=== PATIENT | female | born 1985 ===

== ENCOUNTER 2017-03-30 16:42 | Emergency (ER) | payer OTHER ==
[2017-03-30 16:42] VITALS: BMI 32.4
[2017-03-30] MEDS ORDERED: Sodium Chloride 0.9% 1,000 ML IV ONE (17:59)
--- NOTE | 2017-03-30 17:59 | C.PDOC ---
History Of Present Illness 31-year-old female, (17-weeks, ), PMHx includes prior kidney stones, right ovarian cyst and twin with previa, presents to the emergency department with complaints of right-lower quadrant abdominal pain, that radiates to lower back. Patient denies nausea/vomiting, vaginal bleeding/ discharge, fevers or chills. No other complaints at this time. Time Seen by Provider: 03/30/17 17:21 Chief Complaint (Nursing): Abdominal Pain History Per: Patient History/Exam Limitations: no limitations Onset/Duration Of Symptoms: Days Current Symptoms Are (Timing): Still Present Severity: Moderate Location Of Pain/Discomfort: RLQ Past Medical History Reviewed: Historical Data, Nursing Documentation, Vital Signs Vital Signs: Last Vital Signs Temp 99 F 03/30/17 16:50 Pulse 102 H 03/30/17 16:50 Resp 18 03/30/17 16:50 BP 122/75 03/30/17 16:50 Pulse Ox 99 03/30/17 18:39 - Medical History PMH: Kidney Stones - [facility] Procedures TETANUS TOXOID ADMINIST (01/07/14) Family History: States: Diabetes, Hypertension - Social History Hx Tobacco Use: No Hx Alcohol Use: Yes Hx Substance Use: No - Immunization History Hx Tetanus Toxoid Vaccination: Yes (01/07/2014) Hx Influenza Vaccination: Yes Hx Pneumococcal Vaccination: No Review Of Systems Except As Marked, All Systems Reviewed And Found Negative. Constitutional: Negative for: Fever, Chills Cardiovascular: Negative for: Chest Pain Respiratory: Negative for: Shortness of Breath Gastrointestinal: Positive for: Abdominal Pain. Negative for: Nausea, Vomiting Genitourinary: Negative for: Vaginal Discharge, Vaginal Bleeding Musculoskeletal: Positive for: Back Pain Skin: Negative for: Rash Physical Exam - Physical Exam Appears: Non-toxic, No Acute Distress Skin: Warm, Dry, No Rash Head: Atraumatic, Normacephalic Eye(s): bilateral: Normal Inspection, PERRL, EOMI Nose: Normal Oral Mucosa: Moist Lips: Normal Appearing Neck: Normal ROM Cardiovascular: Rhythm Regular, No Murmur Respiratory: Normal Breath Sounds Gastrointestinal/Abdominal: Soft, Other (Gravid) Back: CVA Tenderness (right) Extremity: Normal ROM Neurological/Psych: Oriented x3, Normal Speech ED Course And Treatment - Laboratory Results Result Diagrams: 03/30/17 18:16 03/30/17 18:16 O2 Sat by Pulse Oximetry: 99 Progress - Re-Evaluation Re-evaluation Note: 03/30/17 18:27 D/W DR RILEY AGREES W ER PLAN - Data Reviewed Data Reviewed: Lab, Diagnostic imaging, EKG, Old records - Continuity of Care Discussed pt. case with senior clinical consultant/specialty: Obstetrics/Gynecology Disposition - Disposition Disposition Time: 19:00 Condition: STABLE Forms: [employer] (Kinyarwanda) - Clinical Impression Clinical Impression: Abdominal pain, , Placenta previa - Scribe Statement The provider has reviewed the documentation as recorded by the Scribe (Juan José Parekh) All medical record entries made by the Scribe were at my direction and personally dictated by me. I have reviewed the chart and agree that the record accurately reflects my personal performance of the history, physical exam, medical decision making, and the department course for this patient. I have also personally directed, reviewed, and agree with the discharge instructions and disposition. Physician Patient Turnover Patient Signed Over To: Ryan Gan Handoff Comments: SAI JANSEN, DISPO
--- NOTE | 2017-03-30 17:59 | C.PDOC ---
Time Seen by Provider: 03/30/17 17:21 Chief Complaint (Nursing): Abdominal Pain Past Medical History Vital Signs: Last Vital Signs Temp 99 F 03/30/17 16:50 Pulse 102 H 03/30/17 16:50 Resp 18 03/30/17 16:50 BP 122/75 03/30/17 16:50 Pulse Ox 99 03/30/17 16:50 - Medical History PMH: Kidney Stones - [facility] Procedures TETANUS TOXOID ADMINIST (01/07/14) Family History: States: Diabetes, Hypertension - Social History Hx Tobacco Use: No Hx Alcohol Use: Yes Hx Substance Use: No - Immunization History Hx Tetanus Toxoid Vaccination: Yes (01/07/2014) Hx Influenza Vaccination: Yes Hx Pneumococcal Vaccination: No ED Course And Treatment O2 Sat by Pulse Oximetry: 99 Progress - Data Reviewed Data Reviewed: Lab, Diagnostic imaging, EKG, Old records Disposition - Disposition
[2017-03-30 18:20] LABS: BASO % 0.2 % (0.0-2.0); EOS # 0.1 K/uL (0.0-0.7); EOS % 1.3 % (0.0-4.0); HEMATOCRIT 33.6 % (34.0-47.0); LYMPH # 1.4 K/uL (1.0-4.3); LYMPH % 14.7 % (20.0-40.0); MEAN CELL VOLUME 85.7 fL (81.0-99.0); MEAN PLATELET VOLUME 9.4 fL (7.2-11.7); MONO # 0.5 K/uL (0.0-0.8); MONO % 5.4 % (0.0-10.0); NRBC % 0.2 % (0.0-2.0); WHITE BLOOD COUNT 9.8 K/uL (4.8-10.8)
[2017-03-30 18:22] LABS: URINE BILIRUBIN NEGATIVE (NEGATIVE); URINE BLOOD NEGATIVE (NEGATIVE); URINE COLOR Straw (YELLOW); URINE GLUCOSE (UA) NORMAL (Normal); URINE KETONE NEGATIVE (NEGATIVE); URINE LEUKOCYTE ESTERASE NEG Leu/uL (Negative); URINE PROTEIN NEGATIVE (NEGATIVE); URINE UROBILINOGEN NORMAL mg/dL (0.2-1.0); WBC URINE < 1 /hpf (0-5)
[2017-03-30 18:28] LABS: CHLORIDE 99 mmol/L (98-107)
[2017-03-30 18:29] LABS: POTASSIUM 3.4 mmol/L (3.6-5.2); SODIUM 135 mmol/L (132-148)
[2017-03-30 18:31] LABS: BILIRUBIN,TOTAL 0.5 mg/dL (0.2-1.3); GFR AFRICAN-AMERICAN > 60
[2017-03-30 18:32] LABS: ALB/GLOB RATIO 1.1 (1.0-2.1); ALKALINE PHOSPHATASE 43 U/L (38-126); ALT/SGPT 23 U/L (9-52); AST/SGOT 16 U/L (14-36); BLOOD UREA NITROGEN 7 mg/dL (7-17); CALCIUM 9.6 mg/dl (8.6-10.4); CARBON DIOXIDE 20 mmol/L (22-30); GLUCOSE,RANDOM 82 mg/dL (65-105); TOTAL PROTEIN 7.2 g/dL (6.3-8.3)
--- NOTE | 2017-03-30 23:02 | US ---
EXAM: US Abdomen Complete EXAM DATE/TIME: 03/30/2017 5:59 PM CLINICAL HISTORY: 31 years old, female; Pain; Other: Rt flank pain; ; Additional info: Back pain RO acute edwardo, flank pain, h/o kidney stones TECHNIQUE: Real-time ultrasound of the abdomen (complete) with image documentation. COMPARISON: There are no prior studies for comparison. FINDINGS: Liver: Liver is unremarkable. Hepatopedal Gallbladder: Gallbladder is distended with no stones, sludge or wall thickening. Common bile duct: Common bile duct measures 4.1 mm in diameter. Pancreas: Pancreas is partially obscured by bowel gas. Visualized portions unremarkable. Kidneys: Both kidneys measure approximately 11 cm in length. There is no pelvocaliectasis. There are no shadowing stones Spleen: Spleen is unremarkable. Aorta: Visualized portions of the aorta and inferior vena cava are unremarkable. Inferior vena cava: See above. IMPRESSION: Normal abdominal ultrasound Patient was not tender over the gallbladder
--- NOTE | 2017-03-30 23:20 | US ---
EXAM: US After First Trimester, Transabdominal, Fetus A CLINICAL HISTORY: 31 years old, female; Pain and signs and symptoms; LMP 11/29/16; Antepartum complications; Other: Rt flank pain; complicated by abdominal or pelvic pain; Right upper quadrant; Second trimester; ; Patient HX: Twin gest; Additional info: Abd pain RO demise ho previa TECHNIQUE: Real-time transabdominal obstetrical ultrasound of the maternal pelvis and the first gestation (Fetus A) of a second or third trimester with image documentation. COMPARISON: There are no prior studies for comparison. FINDINGS: FETUS A: Fetus: There is a twin intrauterine gestation. There is a membrane seen the 2 fetuses. Fetus A is in transverse presentation. There is a heart rate of 152 beats per minute. Placenta: There is a single anterior placenta with no previa or abruption. Amniotic fluid: Amniotic fluid volume appears normal Anatomy: Evaluation of anatomy is limited by positioning and early gestational age. Fluid is seen in the stomach. Heart, kidneys and cord insertion were identified. There is a three-vessel cord. BIOMETRICS FETUS A: Gestational age by US: 17 weeks 1 day EFW: 183.8 g BPD: 3.7 cm, 17 weeks 2 days HC: 13.77 cm, 17 weeks 1 day AC: 11.47 cm, 17 weeks 2 days FL: 2.35 cm, 17 weeks 0 days MATERNAL: Uterus: Uterus could not be measured Cervix: Cervix is closed. Cervix measures approximately 3.3 cm in length. Free fluid: There is no free fluid. IMPRESSION: Twin living intrauterine gestation, 17 week 1 day twin A., estimated dated delivery 09/06/17 EXAM: US After First Trimester Additional Gestation, Transabdominal, Fetus B EXAM DATE/TIME: 03/30/2017 5:59 PM CLINICAL HISTORY: 31 years old, female; Pain and signs and symptoms; LMP 11/29/16; Antepartum complications; Other: Rt flank pain; complicated by abdominal or pelvic pain; Right upper quadrant; Second trimester; ; Patient HX: Twin gest; Additional info: Abd pain RO demise ho previa TECHNIQUE: Real-time transabdominal obstetrical ultrasound of the maternal pelvis and the second gestation (Fetus B) of a second or third trimester with image documentation. COMPARISON: There are no prior studies for comparison. FINDINGS: FETUS B: Fetus: Fetus B. is in transverse presentation. There is a heart rate of 161 beats per minute. Placenta: There is a single anterior placenta with no previa or abruption Amniotic fluid: Amniotic fluid volume appears normal. Anatomy: Evaluation of anatomy is limited by positioning and early gestational age. There is a four-chamber heart. Cord insertion is normal in appearance. There are kidneys in both flanks. There is fluid in the stomach and bladder. There is a three-vessel cord. BIOMETRICS FETUS B: Gestational age by US: 17 weeks 2 days EFW: Estimated weight 187 g BPD: 3.7 cm, 17 weeks 2 days HC: 14.14 cm, 17 weeks 3 days AC: 11.62 cm, 17 weeks 3 days FL: 2.36 cm, 17 weeks 1 day IMPRESSION: 17 week 2 day transverse twin B, estimated date of delivery 09/05/17
[2017-03-30 23:58] VITALS: BP 111/67; PULSE 94; RESP 18; TEMP 98.1; O2SAT 98
== END 2017-03-31 00:05 | disposition home or self-care (01) ==
LOC: C.ER 16:42
DX: O44.02 Complete placenta previa NOS or without hemorrhage, second trimester (principal); Z3A.17 17 weeks gestation of pregnancy; O26.92 Pregnancy related conditions, unspecified, second trimester; R10.31 Right lower quadrant pain
CPT/HCPCS: 76705; 76770; 76815; 80053; 81001; 84702; 85025; 86850; 86900; 87086; 99285; J7040